=== PATIENT | female | born 1980 | race Caucasian/White ===

== ENCOUNTER 2017-12-09 00:41 | Emergency (ER) | payer OTHER ==
[~2017-12-09] VITALS: Ht 170.2 cm; Wt 77.1 kg
[~2017-12-09 00:41] MED LIST: HYDROXYZINE HCL25 M1 PO; MEDROLDOSEPACK PO; NOHOMEMEDICATIONS; TRIAMCINOLONE A80 G2 TOP; VISTARIL 25 MG25 M1 PO
[2017-12-09] MEDS ORDERED: BACTRIM DS TAB1 EACH PO (01:08)
[2017-12-09 01:23] VITALS: BP 122/90
== END 2017-12-09 01:24 | disposition home or self-care (01) ==
LOC: M.ERS 00:41
DX: L73.9 Follicular disorder, unspecified (principal); Z88.1 Allergy status to other antibiotic agents

== ENCOUNTER 2018-09-14 21:14 | Emergency (ER) | payer OTHER ==
[~2018-09-14] VITALS: Ht 170.2 cm; Wt 81.7 kg
[~2018-09-14 21:14] MED LIST changes: +BACTRIM DS TAB1 EACH PO
[2018-09-14] MEDS ORDERED: CENTANY30 GM TOP (21:37)
[2018-09-14 22:00] VITALS: BP 137/90
== END 2018-09-14 22:03 | disposition home or self-care (01) ==
LOC: M.ERS 21:14
DX: L01.00 Impetigo, unspecified (principal); Z88.1 Allergy status to other antibiotic agents; Z88.8 Allergy status to other drugs, medicaments and biological substances